=== PATIENT | male | born 1965 | race Caucasian/White ===

== ENCOUNTER 2020-06-22 20:27 | Emergency (ER) | payer SELFPAY ==
[~2020-06-22] VITALS: Ht 182.9 cm; Wt 78.5 kg
[2020-06-22 21:19] LABS: Basophils # (auto) 0.1 10 ^3/uL (0-0.2); Basophils % (auto) 0.6 % (0.0-2.0); Eosinophils # (auto) 0.1 10 ^3/uL (0-0.8); Eosinophils % (auto) 1.5 % (0.0-7.0); Hematocrit 42.2 % (41.0-53.0); Hemoglobin 14.3 g/dL (13.5-17.5); Lymphocytes # (auto) 1.2 10 ^3/uL (0.4-5.4); Lymphocytes % (auto) 13.7 % (10.0-50.0); Mean Corpuscular Hemoglobin 30.6 pg (28.0-32.0); Mean Corpuscular Hgb Conc. 33.8 g/dL (32.0-36.0); Mean Corpuscular Volume 90.3 fL (80.0-100.0); Monocytes # (auto) 0.5 10 ^3/uL (0-1.3); Monocytes % (auto) 5.7 % (0.0-12.0); Neutrophils # (auto) 6.8 10 ^3/uL (1.6-8.6); Neutrophils % (auto) 78.5 % (37.0-80.0); Nucleated Red Blood Cells % 0.1 %; Platelet Count (auto) 235 10^3/uL (140-450); Red Blood Cells 4.67 10^6/uL (4.5-5.90); Red Cell Distribution Width 15.1 % (11.8-14.3); White Blood Cell 8.7 10^3/uL (4.4-10.8)
[2020-06-22 21:38] LABS: Albumin 3.6 g/dL (3.4-5.0); BUN/Creatinine Ratio 11.2; Calcium 8.7 mg/dL (8.5-10.1); Potassium 3.6 mmol/L (3.5-5.1)
[2020-06-22 21:40] LABS: Bilirubin, Total 0.4 mg/dL (0.2-1.0); Total Protein 7.3 g/dL (6.4-8.2)
[2020-06-23 00:25] VITALS: BP 134/90
[2020-06-23] MEDS ORDERED: ALUM & MAG HYDROX-SIMETH LIQ(MAALOX) 30 ML PO ONE (00:45)
[2020-06-23] MEDS ORDERED: LIDOCAINE VISCOUS 2% 15ML UD PO ONE (00:45)
[2020-06-23] MEDS ORDERED: DONNATAL 5ml ORAL Elix (BELLADONNA ALK-PHENOBARB) PO ONE (00:45)
== END 2020-06-23 00:46 | disposition home or self-care (01) ==
LOC: ER 20:27
DX: K21.9 Gastro-esophageal reflux disease without esophagitis (principal)
CPT/HCPCS: 36415; 80053; 85025

== ENCOUNTER 2020-10-29 09:30 | Emergency (ER) | payer SELFPAY ==
[~2020-10-29] VITALS: Ht 185.4 cm; Wt 86.6 kg
[2020-10-29 09:33] VITALS: BP 123/89
== END 2020-10-29 10:56 | disposition home or self-care (01) ==
LOC: ER 09:30
DX: S50.852A Superficial foreign body of left forearm, initial encounter (principal); X58.XXXA Exposure to other specified factors, initial encounter; Y93.89 Activity, other specified; Y92.89 Other specified places as the place of occurrence of the external cause; Y99.8 Other external cause status
CPT/HCPCS: 73090

== ENCOUNTER 2022-06-03 06:03 | Emergency (ER) | payer MEDICAID ==
[~2022-06-03] VITALS: Ht 180.3 cm; Wt 99.0 kg
[~2022-06-03 06:03] MED LIST: DIPH25CA66 PO; PRED20TA2 PO
[2022-06-03 06:25] VITALS: BP 116/88
[2022-06-03] MEDS ORDERED: BACDST PO (07:40)
[2022-06-03] MEDS ORDERED: CEPH-510 PO (07:40)
[2022-06-03] MEDS ORDERED: NAPR500T31 PO (07:40)
== END 2022-06-03 07:53 | disposition home or self-care (01) ==
LOC: ER 06:03
DX: S50.862A Insect bite (nonvenomous) of left forearm, initial encounter (principal); W57.XXXA Bitten or stung by nonvenomous insect and other nonvenomous arthropods, initial encounter; Y93.89 Activity, other specified; Y92.89 Other specified places as the place of occurrence of the external cause; Y99.8 Other external cause status

== ENCOUNTER 2022-08-01 21:21 | Emergency (ER) | payer MEDICAID ==
[~2022-08-01] VITALS: Ht 180.3 cm; Wt 89.5 kg
[~2022-08-01 21:21] MED LIST changes: +BACDST PO; +CEPH-510 PO; +NAPR500T31 PO
[2022-08-02] MEDS ORDERED: AMOXICILLIN/CLAVULAN 500 MG TAB PO ONE (02:30)
[2022-08-02] MEDS ORDERED: AMOX500T86 PO (02:30)
[2022-08-02] MEDS ORDERED: PERCOT PO (02:30)
[2022-08-02] MEDS ORDERED: OXYCODONE W/ ACETAMINOPHEN 5/325MG TABLET PO ONE (02:30)
[2022-08-02 04:51] VITALS: BP 149/76
== END 2022-08-02 04:58 | disposition home or self-care (01) ==
LOC: ER 21:27
DX: M27.2 Inflammatory conditions of jaws (principal); F17.210 Nicotine dependence, cigarettes, uncomplicated; F15.10 Other stimulant abuse, uncomplicated; Z59.00 Homelessness unspecified; Z88.6 Allergy status to analgesic agent; Z88.2 Allergy status to sulfonamides
CPT/HCPCS: 70486